=== PATIENT | male | born 1975 | race Caucasian/White ===

== ENCOUNTER 2016-11-30 16:19 | Emergency (ER) | payer OTHER ==
[~2016-11-30] VITALS: Ht 175.3 cm; Wt 89.4 kg
--- NOTE | ~2016-11-30 | EKG ---
[address] [place] [address] ELECTROCARDIOGRAM REPORT Name: HALEY FELIX [facility]: [id number] Admission: 11/30/16 Attend Phys: Discharge: 11/30/16 Date of : 73 Report #: [id number] THIS REPORT FOR: //name// [facility] ED Test Date: 2016-11-30 Test Time: 16:24:51 Pat Name: HALEY FELIX Department: Room: Gender: Foley Artist: Hayley GARAY : 1975 Requested By: Kole Clark Order Number: [id number] MD: Edilson Reddy Measurements Intervals [place] Rate: 84 P: 38 GA: 160 QRS: 31 QRSD: 90 T: 50 QT: 352 QTc: 417 Interpretive Statements Sinus rhythm No previous ECG available for comparison Electronically Signed On 12-01-2016 8:08:41 [employer] by Edilson Reddy [email or web address] <ELECTRONICALLY SIGNED> By: Edilson Reddy MD 12/01/16 0808 1624 1624 Edilson Reddy MD /EPI
[~2016-11-30 16:19] MED LIST: ACID CONTROL20 MG PO; ASPIRIN325 PO; AUGMENTIN 875875 M1 PO; BACTRIM DS TAB1 EACH; CLEOCIN HCL150 MG PO; CLINDAMYCIN HC150 MG PO; DOXYCYCLINE 10100 M1 PO; FLEXERIL PO; GLIPIZIDE ER2.5 MG; GLUCOPHAGE1000 MG PO; GLUCOPHAGE500 MG PO; GLUMETZA500; IBUPROFEN 600600 M1 PO; JANUMET 50-1,01 EACH; LEVEMIR SUBQ; LISINOPRIL20 MG; LISINOPRIL20 MG PO; LISINOPRIL5 MG PO; MED FOR PROSTATE; MELOXICAM7.5 MG PO; METFORMIN 500500 MG PO; METFORMIN HCL1000 M1 PO; MICRONASE2.5 MG PO; NAPROSYN500 MG PO; NOHOMEMEDICATIONS; NORCO 5-325 TA1 EACH PO; NOVOLOG100 UNIT/1 SUBQ; PAXIL10 MG; PENICILLIN VK500 M1 PO; PENICILLIN VK500 MG PO; PERCOCET 5-3251 EACH PO; PREDNISONE50 MG PO; PROMETHAZINE12.5 M1 PO; TRAMADOL 50 MG50 MG PO; VICODIN 5-5001 EACH
[2016-11-30 16:56] LABS: ABSOLUTE NEUTROPHILS 4.7 thou/uL (1.4-8.2); BASOPHILS 0.4 % (0.0-2.0); EOSINOPHILS 1.3 % (0.0-3.0); HEMATOCRIT 42.9 % (42.0-52.0); HEMOGLOBIN 14.9 gm/dL (14.0-18.0); LYMPHOCYTES 22.9 % (24.0-44.0); MCH 28.6 pg (26.0-34.0); MCHC 34.8 % (28.0-37.0); MCV 82.2 fL (80.0-100.0); MONOCYTES 7.7 % (1.0-8.0); PLATELET COUNT 202 thou/uL (150-400); POLYS 67.7 % (36.0-66.0); RBC 5.21 mil/uL (4.50-6.00); RDW 12.4 % (10.5-14.5); WBC 6.9 thou/uL (4.0-11.0)
[2016-11-30 16:58] LABS: MANUAL DIFF NO
[2016-11-30 17:01] LABS: ANION GAP 9 mmol/L (7-16); BUN 17 mg/dL (7-18); CALCIUM 9.1 mg/dL (8.5-10.1); CHLORIDE 102 mmol/L (98-107); CO2 26 mmol/L (21-32); CREATININE 0.8 mg/dL (0.6-1.3); GLUCOSE 346 mg/dL (70-99); POTASSIUM 4.7 mmol/L (3.5-5.1); SODIUM 137 mmol/L (136-145)
[2016-11-30 17:10] LABS: TROPONIN-I < 0.04 ng/mL (<0.04-0.07)
[2016-11-30 17:48] LABS: URINE BILIRUBIN NEGATIVE (Negative); URINE BLOOD NEGATIVE (Negative); URINE COLOR YELLOW; URINE GLUCOSE-RANDOM* 3+ (Negative); URINE KETONES TRACE (Negative); URINE NITRITE NEGATIVE (Negative); URINE PROTEIN (DIPSTICK) NEGATIVE (Negative); URINE SPECIFIC GRAVITY 1.015 (1.003-1.035); URINE UROBILINOGEN 0.2 E.U./dl (0.2-1.0)
== END 2016-11-30 18:28 | disposition home or self-care (01) ==
LOC: ER 16:19
PROVIDERS: Nurse Practitioner
DX: J06.9 Acute upper respiratory infection, unspecified (principal); E11.9 Type 2 diabetes mellitus without complications; Z88.0 Allergy status to penicillin; F17.210 Nicotine dependence, cigarettes, uncomplicated

== ENCOUNTER 2018-10-22 08:12 | Emergency (ER) | payer OTHER ==
[~2018-10-22] VITALS: Ht 175.3 cm; Wt 80.7 kg
[~2018-10-22 08:12] MED LIST changes: +BACTRIM DS TAB1 EACH PO; +KEFLEX500 MG PO; +MUPIROCIN15 GM TOP
[2018-10-22] MEDS ORDERED: IBUPROFEN 800800 MG PO (09:24)
[2018-10-22] MEDS ORDERED: NORCO 5-325 TA1 EACH PO (09:24)
[2018-10-22 09:55] VITALS: BP 155/76
== END 2018-10-22 09:58 | disposition home or self-care (01) ==
LOC: ER 08:12
DX: S93.492A Sprain of other ligament of left ankle, initial encounter (principal); F17.210 Nicotine dependence, cigarettes, uncomplicated; Z88.0 Allergy status to penicillin; E11.9 Type 2 diabetes mellitus without complications; W01.198A Fall on same level from slipping, tripping and stumbling with subsequent striking against other object, initial encounter; Y92.89 Other specified places as the place of occurrence of the external cause; Y99.0 Civilian activity done for income or pay; Y99.8 Other external cause status

== ENCOUNTER 2021-08-04 03:25 | Emergency (ER) | payer OTHER ==
[~2021-08-04] VITALS: Ht 175.3 cm; Wt 83.9 kg
[~2021-08-04 03:25] MED LIST changes: +IBUPROFEN 800800 MG PO
[2021-08-04] MEDS ORDERED: HUMALOG100 UNIT/1 SUBQ (03:34)
[2021-08-04] MEDS ORDERED: LANTUS SUBQ (03:35)
[2021-08-04] MEDS ORDERED: TRAMADOL 50 MG50 MG PO (03:48)
[2021-08-04 03:59] VITALS: BP 163/110
[2021-08-04] MEDS ORDERED: IBUPROFEN 800800 M1 PO (18:43)
== END 2021-08-04 04:00 | disposition home or self-care (01) ==
LOC: ER 03:25
DX: K08.89 Other specified disorders of teeth and supporting structures (principal); E11.9 Type 2 diabetes mellitus without complications; F17.210 Nicotine dependence, cigarettes, uncomplicated; Z79.4 Long term (current) use of insulin; Z79.899 Other long term (current) drug therapy; Z88.0 Allergy status to penicillin

== ENCOUNTER 2021-08-04 18:20 | Emergency (ER) | payer OTHER ==
[~2021-08-04] VITALS: Ht 175.3 cm; Wt 83.9 kg
[~2021-08-04 18:20] MED LIST changes: +HUMALOG100 UNIT/1 SUBQ; +LANTUS SUBQ
[2021-08-04 18:25] VITALS: BP 176/102
[2021-08-04] MEDS ORDERED: IBUPROFEN 800800 M1 PO (18:43)
== END 2021-08-04 19:03 | disposition home or self-care (01) ==
LOC: ER 18:20
DX: K08.89 Other specified disorders of teeth and supporting structures (principal); E11.9 Type 2 diabetes mellitus without complications; F17.210 Nicotine dependence, cigarettes, uncomplicated; Z98.890 Other specified postprocedural states; Z79.891 Long term (current) use of opiate analgesic; Z79.4 Long term (current) use of insulin; Z79.899 Other long term (current) drug therapy; Z88.0 Allergy status to penicillin